=== PATIENT | female | born 1995 | race Two or more races ===

== ENCOUNTER 2017-12-16 20:30 | Emergency (ER) | payer BC, MEDICAID ==
--- NOTE | 2017-12-16 21:26 | EDM.PDOC ---
ED HPI GENERAL MEDICAL PROBLEM - General Chief Complaint: ENT Problem Stated Complaint: TOOTHACHE Time Seen by Provider: 12/16/17 21:17 Source of Information: Reports: Patient History Limitations: Reports: No Limitations - History of Present Illness INITIAL COMMENTS - FREE TEXT/NARRATIVE: This patient says she has a toothache it's one of the posterior molars adjacent to the wisdom tooth. She said she is or early seeing the dentist for this and the tooth is going to be pulled in the near future. She is taking amoxicillin but says that she is out of pain medications Tooth/Teeth Pain Score (Numeric/FACES): 5 - Related Data Allergies Allergy/AdvReac Type Severity Reaction Status Date / Time clotrimazole Allergy Edema Verified 12/16/17 20:44 Home Meds: Home Meds NK [No Known Home Meds] 12/16/17 [History] Past Medical History - Infectious Disease History Infectious Disease History: Reports: Chicken Pox Social & Family History - Tobacco Use Smoking Status *Q: Never Smoker Years of Tobacco use: 4 Second Hand Smoke Exposure: No - Caffeine Use Caffeine Use: Reports: Coffee, Soda, Tea - Alcohol Use Days Per Week of Alcohol Use: 0 - Recreational Drug Use Recreational Drug Use: No Drug Use in Last 12 Months: Yes Recreational Drug Type: Reports: Xanax Recreational Drug Use Frequency: Not Used In Over 6 Months ED ROS ENT - Review of Systems Review Of Systems: ROS reveals no pertinent complaints other than HPI. ED EXAM, ENT - Physical Exam Exam: See Below Exam Limited By: No Limitations General Appearance: Alert, Mild Distress Mouth/Throat: Other (Posterior molar just anterior to the wisdom tooth shows severe dental caries in fact most of the tooth is eroded away there is no associated abscess. The tooth is tender.) Course - Vital Signs Last Recorded V/S: Last Vital Signs Temp 37.4 C 12/16/17 20:49 Pulse 95 12/16/17 20:49 Resp 16 12/16/17 20:49 BP 137/74 12/16/17 20:49 Pulse Ox 98 12/16/17 20:49 Departure - Departure Time of Disposition: 21:24 Disposition: Home, Self-Care 01 Condition: Fair Clinical Impression: Pain due to dental caries - Discharge Information Instructions: Dental Caries, Pediatric Referrals: PCP,None [Primary Care Provider] - Forms: ED Department Discharge Additional Instructions: You may take Tylenol or acetaminophen along with the ibuprofen. Follow package instructions for both. If this isn't doing it then you can get the prescription filled for some Narco the Narco is a small dose of the narcotic hydrocodone along with 325 mg of Tylenol and you take one or 2 of those every 4 hours. So if you're taking to the Narco tablets that you shouldn't take any Tylenol. You could take 1 Narco and one Tylenol tablet at the same time. Don't take any more than 3000 mg of Tylenol per day. Follow-up with your dentist as planned
== END 2017-12-16 21:36 | disposition home or self-care (01) ==
LOC: JP.ED 20:30
DX: K02.9 Dental caries, unspecified (principal); Z88.8 Allergy status to other drugs, medicaments and biological substances
CPT/HCPCS: 99283

== ENCOUNTER 2019-05-31 15:10 | Emergency (ER) | payer BC ==
--- NOTE | 2019-05-31 17:43 | EDM.PDOC ---
ED HPI GENERAL MEDICAL PROBLEM - General Chief Complaint: Upper Extremity Injury/Pain Stated Complaint: WRIST HURTS NOT AN ACCIDENT Time Seen by Provider: 05/31/19 17:35 Source of Information: Reports: Patient History Limitations: Reports: No Limitations - History of Present Illness INITIAL COMMENTS - FREE TEXT/NARRATIVE: Hiral is a 23 year old female, presents to the ED with a 2 day hx of left wrist pain, denies any injury/trauma. Is right handed, works at [employer]. No meds for pain, movement makes pain worse, rest helps, no hx of this in the past , no other complaints Onset: Gradual Duration: Day(s): Left Wrist Pain Score (Numeric/FACES): 9 - Related Data Allergies Allergy/AdvReac Type Severity Reaction Status Date / Time clotrimazole Allergy Edema Verified 05/31/19 17:37 Home Meds: Home Meds NK [No Known Home Meds] 12/16/17 [History] Past Medical History - Infectious Disease History Infectious Disease History: Reports: Chicken Pox Social & Family History - Tobacco Use Smoking Status *Q: Never Smoker - Caffeine Use Caffeine Use: Reports: Coffee, Soda, Tea - Recreational Drug Use Recreational Drug Use: No Review of Systems - Review of Systems Review Of Systems: ROS reveals no pertinent complaints other than HPI. ED EXAM, GENERAL - Physical Exam Exam: See Below Exam Limited By: No Limitations General Appearance: Alert, WD/WN, No Apparent Distress Throat/Mouth: Normal Inspection Head: Atraumatic Neck: Normal Inspection, Supple, Non-Tender Respiratory/Chest: No Respiratory Distress Cardiovascular: Regular Rate, Rhythm Peripheral Pulses: 2+: Radial (L), Radial (R) Extremities: Normal Inspection, Other (tenderness to left wrist medial aspect no lateral tenderness pain worse with extension) Neurological: Alert, Oriented, CN II-XII Intact, Sensory/Motor Deficit Psychiatric: Normal Affect Skin Exam: Warm, Dry, Intact Lymphatic: No Adenopathy Course - Vital Signs Last Recorded V/S: Last Vital Signs Temp 37.3 C 05/31/19 17:36 Pulse 84 05/31/19 17:36 Resp 14 05/31/19 17:36 BP 132/80 05/31/19 17:36 Pulse Ox 96 05/31/19 17:36 Left wrist tendonitis. Wrist splint for one week. Aleve for one week as prescribed, avoid any other NSAIDS, follow up with PCP next week. Return with worsening symptoms. Patient agreeable and discharged in stable condition. Departure - Departure Time of Disposition: 18:00 Disposition: Home, Self-Care 01 Condition: Good Clinical Impression: Tendonitis - Discharge Information Instructions: Tendinitis, [id number] Referrals: Dali Freitas CNM [Primary Care Provider] - Additional Instructions: Aleve as prescribed. Avoid Ibuprofen/Aspirin while on this. Wear splint for the next week, follow up with PCP if not improved by that time.
== END 2019-05-31 18:01 | disposition home or self-care (01) ==
LOC: JP.ED 15:10
DX: M77.9 Enthesopathy, unspecified (principal)
CPT/HCPCS: 99283

== ENCOUNTER 2024-10-05 17:21 | Emergency (ER) | payer BC ==
[2024-10-05 19:50] LABS: BASOPHILS ABSOLUTE AUTO 0.02 K/uL (0.00-0.10); BASOPHILS PERCENT AUTO 0.2 % (0.1-1.3); EOSINOPHILS ABSOLUTE AUTO 0.07 K/uL (0.00-0.40); EOSINOPHILS PERCENT AUTO 0.8 % (0.0-5.4); HEMATOCRIT 37.7 % (34.3-46.0); HEMOGLOBIN 13.1 g/dL (11.2-15.5); IMMATURE GRAN ABSOLUTE AUTO 0.04 K/uL (0.00-0.23); IMMATURE GRAN PERCENT AUTO 0.5 % (0.0-0.7); LYMPHOCYTES ABSOLUTE AUTO 0.47 K/uL (0.8-3.3); LYMPHOCYTES PERCENT AUTO 5.3 % (11.4-47.7); MEAN CORPUSCULAR HEMOGLOBIN 29.8 pg (31.6-35.5); MEAN CORPUSCULAR HGB CONC 34.7 g/dL (31.6-35.5); MEAN CORPUSCULAR VOLUME 85.9 fL (81.4-99.0); MONOCYTES ABSOLUTE AUTO 0.31 K/uL (0.20-0.90); MONOCYTES PERCENT AUTO 3.5 % (3.3-12.6); NEUTROPHILS ABSOLUTE AUTO 7.95 K/uL (1.0-7.6); NEUTROPHILS PERCENT AUTO 89.7 % (40.0-78.1); PLATELET COUNT,PLT 243 K/uL (130-375); RED BLOOD CELL COUNT 4.39 M/uL (3.77-5.24); WHITE BLOOD CELL COUNT,WBC 8.9 K/uL (3.2-11.0)
[2024-10-05 20:13] LABS: LACTIC ACID 1.6 mmol/L (0.4-2.0)
[2024-10-05 20:16] LABS: A/G RATIO 1.1 (1.2-2.2); ALANINE AMINOTRANSFERASE,ALT 31 U/L (12-78); ALBUMIN 4.2 g/dL (3.4-5.0); ALKALINE PHOSPHATASE 57 U/L (46-116); ASPARTATE AMNIOTRANSFERASE,AST 18 U/L (15-37); BILIRUBIN TOTAL 0.3 mg/dL (0.2-1.0); BLOOD UREA NITROGEN,BUN 5 mg/dL (7-18); C-REACTIVE PROTEIN 1.37 mg/dL (<0.50); CALCIUM 8.9 mg/dL (8.5-10.1); CARBON DIOXIDE,CO2 23 mmol/L (21-32); CHLORIDE,CL 102 mmol/L (100-108); CREATININE 0.7 mg/dL (0.6-1.0); EST CRCL DRUG DOSING (CG) 97.21 mL/min; ESTIMATED GFR 119 mL/min (>60); GLUCOSE RANDOM 92 mg/dL (74-106); HCG QUANTITATIVE 747 mIU/mL (0-6); POTASSIUM,K 3.5 mmol/L (3.6-5.2); SODIUM,NA 139 mmol/L (140-148)
[2024-10-05 20:17] LABS: ANION GAP 17.5 mmol/L (5.0-14.0)
[2024-10-05] MEDS ORDERED: Ampicillin 2 GM in Sodium Chloride 0.9% 100 ML IV ONE (21:25)
[2024-10-05] MEDS ORDERED: metroNIDAZOLE/Normal Saline 500 MG in Premix Bag 1 BAG IV ONE (21:25)
[2024-10-05] MEDS: Acetaminophen 1,000 MG in Premix Bag 1 BAG IV ONE (21:36)
[2024-10-05] MEDS: Sodium Chloride 0.9% 1,000 ML IV SCH (21:37)
[2024-10-05] MEDS ORDERED: Gentamicin 430 MG in Sodium Chloride 0.9% 100 ML IV ONE (21:45)
[2024-10-05] MEDS: cefTRIAXone 2 GM in Sodium Chloride 0.9% 50 ML IV ONE (22:04)
[2024-10-05] MEDS: Doxycycline 100 MG Cap PO ONE (22:06)
[2024-10-05] MEDS: Ibuprofen 400 MG Tab PO ONE (22:34)
== END 2024-10-05 23:10 | disposition home or self-care (01) ==
LOC: JP.ED 17:21
DX: O03.4 Incomplete spontaneous abortion without complication (principal); O99.281 Endocrine, nutritional and metabolic diseases complicating pregnancy, first trimester; E03.9 Hypothyroidism, unspecified; Z79.890 Hormone replacement therapy; Z86.16 Personal history of COVID-19; Z88.8 Allergy status to other drugs, medicaments and biological substances; Z3A.01 Less than 8 weeks gestation of pregnancy
CPT/HCPCS: 36415; 76817; 80053; 83605; 84702; 85025; 86140; 87040; 96365; 96375; 99284; A9270; J0131; J0696; J7030